=== PATIENT | female | born 1985 | race Caucasian/White ===

== ENCOUNTER 2023-02-06 00:02 | Emergency (ER) | payer OTHER, MEDICAID ==
[~2023-02-06] VITALS: Ht 149.9 cm; Wt 63.5 kg
[2023-02-06] MEDS ORDERED: KETOROLAC 30 MG/ML 1ML VIAL IV ONE (05:55)
[2023-02-06] MEDS ORDERED: METOCLOPRAMIDE INJ 10MG/2ML VIAL IV ONE (05:55)
[2023-02-06] MEDS ORDERED: NS 1,000 ML IV ONE (05:55)
[2023-02-06] MEDS ORDERED: diphenhydrAMINE 50MG/ML VIAL IV ONE (05:55)
[2023-02-06 06:29] LABS: BASO % 0.6 % (0.0-1.0); EOS # 0.2 10^3/uL (0.0-0.5); EOS % 3.5 % (0.0-3.0); HEMOGLOBIN 12.6 g/dl (12.0-15.5); LYMPH # 3.3 10^3/uL (1.5-5.0); LYMPH % 49.4 % (24.0-44.0); MEAN CORPUSCULAR HEMOGLOBIN 21.7 pg (27.0-33.0); MEAN CORPUSCULAR VOLUME 72.4 fl (80.0-96.0); MONO # 0.6 10^3/uL (0.0-0.8); MONO % 9.2 % (2.0-8.0); NEUTROPHILS # 2.5 10^3/uL (1.5-8.5); NEUTROPHILS % 37.1 % (36.0-66.0); PLATELET COUNT, AUTOMATED 282 10^3/uL (150-450); WHITE BLOOD COUNT 6.6 10^3/uL (4.0-10.0)
[2023-02-06] MEDS ORDERED: ISOVUE-370 76% 100ML VIAL As Ordered ONE (06:43)
[2023-02-06 07:09] LABS: ALBUMIN 3.8 G/DL (3.2-5.2); BILIRUBIN,DIRECT 0.1 MG/DL (<0.4); BILIRUBIN,TOTAL 0.4 MG/DL (0.3-1.2); TOTAL PROTEIN 7.2 G/DL (5.7-8.2)
[2023-02-06] MEDS ORDERED: NITR1CAP11 PO (07:41)
[2023-02-06 08:05] VITALS: BP 103/62; TEMP 97.8; O2SAT 96
== END 2023-02-06 08:15 | disposition home or self-care (01) ==
LOC: M ED 00:02
DX: N39.0 Urinary tract infection, site not specified (principal); N83.292 Other ovarian cyst, left side; R93.422 Abnormal radiologic findings on diagnostic imaging of left kidney; F41.1 Generalized anxiety disorder; F32.A Depression, unspecified; F17.200 Nicotine dependence, unspecified, uncomplicated
CPT/HCPCS: 74177; 80047; 80076; 81000; 81015; 83605; 83690; 85025; 87088; 87186; 93041; 96374; 96375; 99285; J1200; J1885; J2765; Q9967